=== PATIENT | female | born 1975 | race Caucasian/White ===

== ENCOUNTER → 2020-04-15 16:35 | Outpatient (CLI) | payer OTHER, SELFPAY ==
[2020-04-15 18:01] LABS: Absolute Lymphocyte Count 2.78 X10^3/uL (0.83-4.51); Absolute Neutrophil Count 4.2 X10^3/uL (2.0-7.7); Basophil# 0.08 X10^3/uL; Eosinophils% 1.3 % (0-5); Hematocrit 41.4 % (37-47); Hemoglobin 13.5 g/dL (12.0-15.0); Lymphocyte # 2.78 X10^3/ul (4.0); Lymphocyte % 36.2 % (19-41); Mean Corp Hgb Conc 32.6 g/dL (32-36); Mean Corpuscular Hgb 30.2 pg (27.0-32.0); Mean Corpuscular Volume 92.6 fL (81-99); Mean Platelet Vol. 10.4 fl (6.2-12.0); Monocyte# 0.52 X10^3/uL; Monocyte% 6.8 % (0-10); NRBC Flagged by Analyzer 0 % (0-5); Neutrophil # 4.17 X10^3/uL (2.7-7.7); Neutrophil % 54.4 % (47-70); Platelet Count 304 K/mm3 (150-450); RBC Distribution Width SD 41.1 fl (35.1-43.9); Red Blood Count 4.47 M/mm3 (4.2-5.4); White Blood Count 7.7 K/mm3 (4.4-11.0)
[2020-04-15 18:38] LABS: Vitamin B12 497 pg/mL (211-911); Vitamin D,25 Hydroxy 27.8 ng/mL
[2020-04-15 18:53] LABS: ALB/GLOB Ratio 1.1 RATIO (0.9-2.4); AST(SGOT) 20 U/L (15-37); Alanine Aminotransfer ALT/SGPT 28 U/L (13-56); Albumin, Serum 4.1 g/dL (3.2-5.0); Alkaline Phosphatase 58 U/L (45-117); Anion Gap 8 (5-15); BUN 19 mg/dL (7-18); BUN/Creat Ratio 25.1 RATIO (10-20); Chloride 106 mmol/L (98-107); Creatinine, Serum 0.76 mg/dL (0.55-1.02); EST Glomerular Filtration Rate 88 mL/min (>60); Est Glom Filt Rate - Afr Amer 107 mL/min (>60); Globulin 3.6 g/dL (2.2-4.2); Glucose 86 mg/dL (74-106); Potassium 3.5 mmol/L (3.5-5.1); Protein, Total 7.7 g/dL (6.4-8.2); Sodium Level 140 mmol/L (136-145); Thyroid Stim Hormone (TSH) 4.16 uIU/mL (0.358-3.74)
== END ==
PROVIDERS: PCP Family Medicine; Referring Provider Family Medicine; Visit Provider Family Medicine
DX: E04.1 Nontoxic single thyroid nodule (principal); R53.83 Other fatigue
CPT/HCPCS: 36415; 80053; 82306; 82607; 84443; 85025

== ENCOUNTER → 2020-06-21 15:17 | Outpatient (CLI) | payer OTHER, SELFPAY ==
--- NOTE | 2020-06-21 15:27 | US_ITS ---
STUDY: THYROID ULTRASOUND REASON FOR EXAM: Female, 44 years old. nodules TECHNIQUE: Ultrasound evaluation of the thyroid was performed with real-time and static ramirez-scale imaging. COMPARISON: None. FINDINGS: RIGHT LOBE: The right lobe of the thyroid gland measures 4.5 x 1.8 x 2.2 cm. There is a heterogeneous echotexture. There are no demonstrated solid, cystic or complex lesions. LEFT LOBE: The left lobe of the thyroid gland measures 4.3 x 1.6 x 2.0 cm. There is a heterogeneous echotexture. Nodule 1:1.5 x 0.8 x 1.0 cm solid isoechoic wider than tall smoothly marginated nodule with no echogenic foci (TR 3) and follow-up ultrasound is recommended in one year. ISTHMUS: The isthmus measures 3 mm thick. . The regional lymph nodes are normal. US/Thyroid IMPRESSION: Thyroiditis with a dominant 1.5 cm solid nodule the left lobe. Follow-up ultrasound is recommended in one year. Electronically Signed: Miguel Weldon MD at 8:59 EST Tel , Service support ,
== END ==
PROVIDERS: PCP Family Medicine; Referring Provider Family Medicine; Visit Provider Family Medicine
DX: E04.1 Nontoxic single thyroid nodule (principal)
CPT/HCPCS: 76536

== ENCOUNTER → 2020-06-26 15:38 | Outpatient (CLI) | payer OTHER, SELFPAY ==
[2020-06-26 18:24] LABS: Free T3 2.5 pg/mL (2.18-3.98); T4 Free Direct 1.21 ng/dL (0.76-1.46); T4 Total, Thyroxin 9.8 ug/dL (4.8-13.9)
[2020-06-28 21:03] LABS: Anti-Thyroglobulin AB < 1.0 IU/mL (0.0-0.9); Thyroglobulin, Serum Qt. 43.3 ng/mL (1.5-38.5); Thyroid Peroxidase AB 30 IU/mL (0-34)
== END ==
PROVIDERS: PCP Family Medicine; Referring Provider Family Medicine; Visit Provider Family Medicine
DX: E03.9 Hypothyroidism, unspecified (principal)
CPT/HCPCS: 36415; 84432; 84436; 84439; 84481; 86376; 86800

== ENCOUNTER → 2020-08-14 15:34 | Outpatient (CLI) | payer OTHER, SELFPAY ==
[2020-08-14 18:11] LABS: Thyroid Stim Hormone (TSH) 1.32 uIU/mL (0.358-3.74)
== END ==
PROVIDERS: PCP Family Medicine; Referring Provider Family Medicine; Visit Provider Family Medicine
DX: E03.9 Hypothyroidism, unspecified (principal)
CPT/HCPCS: 36415; 84443

== ENCOUNTER → 2020-11-11 16:05 | Outpatient (CLI) | payer OTHER, SELFPAY ==
[2020-11-11 18:44] LABS: Thyroid Stim Hormone (TSH) 1.24 uIU/mL (0.358-3.74)
== END ==
PROVIDERS: PCP Family Medicine; Visit Provider Family Medicine
DX: E04.1 Nontoxic single thyroid nodule (principal)
CPT/HCPCS: 36415; 84443

== ENCOUNTER 2021-01-08 10:44 | Outpatient (RCR) | payer OTHER, SELFPAY ==
--- NOTE | 2021-01-15 12:26 | HP.SP.AD_ITS ---
History - History Date of Eval: 01/08/21 Medical Diagnosis (from RX): Tongue Thrust Previous speech therapy: No Other Relevant Medical History/Diagnoses/Surgery: Non contributory - Pain Is pain an issue with your current prescribed condition?: No - Personal Right Hearing Abillity: Normal Left Hearing Abillity: Normal Patients Living Arrangements: With Significant Other Objective Oral Motor - Oral Status Dentition: WNL - Labial Impairment: WNL Closure: WNL Pucker: WNL Retraction: WNL Alternating Pucker/Retraction: WNL Involuntary Movement noted: No - Lingual Impairment: WNL Protrusion: WNL Retraction: WNL Lateralization: WNL Involuntary Movement: No - Jaw Impairment: WNL - Oral Motor Comments Comments: Noted open anterior bite. - Respiratory Status Respiratory Status: Room Air Other Impressions - Comments Tongue thrust -: When drinking water, protrusion of the tongue was observed during swallowing, indicating a tongue thrust and a reverse swallow pattern. The muscles of her tongue appeared to push down and forward instead of up and back for an appropriate swallow pattern. Yajaira had a difficult time having a collected bolus to swallow as she exhibited scattered bolus for liquids. Oral Movements -: Yajaira was able to perform all oral motor movement tasks within normal limits. These tasks included sticking out her tongue, elevating and lowering her tongue inside and outside of the mouth, and moving the tongue from side to side. Observations of the oral structures presented within normal limits with the exception of the anterior open bite. 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 Overall it was determined Yajaira exhibits a tongue thrust/reverse swallow pattern evidenced by oral behaviors during swallowing. She received an oral motor exam during the evaluation in which her oral structures and function were evaluated through observation of her mouth at rest, during speech, while drinking, and while producing specific oral motor activities. She demonstrated mixed breathing - nose and mouth, however, she did not present with an open mouth posture at rest typically. No TMJ symptoms reported. She had within normal limits for mandibular movements and was able to complete lingual- mandibular differentiation chinyere quately. No grinding or clenching of teeth reported. Plan - Plan Plan: Yajaira is aware of swallow pattern at this time. She is highly interested in a program to correct her lingual placement and swallow pattern. She will be provided with a home program with two sessions to determine if she is able to complete a home program independently. The plan is for her to complete 1-2 education sessions then follow up monthly with reduction as patient gain skills. Patient has requested a home program over therapy sessions due to scheduling. - Recommendations Treatment Warranted: Yes - Frequency Frequency: 1-2 sessions then monthly Duration: 6 Months Visits in this POC: 7 - Goals that are Established: Determination:: Goals will be added/modified as deemed necessary and appropriate. Therapy will be discontinued when results of re-evaluation indicate therapy is no longer needed or lack of progress has been documented. - Goal #1-5 Goal #1: Yajaira will report a correct swallowing pattern for all foods and liquids and a resting posture with a comfort level of 1 on a scale of 1 being all the time and 10 being never on 3 consecutive sessions. Goal #2: Yajaira will demonstrate a correct swallowing pattern for all foods and liquids independently. Goal #3: Yajaira will participate in oral exercises in order to obtain a correct resting posture as well as correct swallow pattern with the ability to complete all exercises independently. Education - Patient has Indicated that the Following Identified Educational Needs: None The Patient has indicated that they have no educational or learning abilities that may effect their care.: Yes - Patient Instruction Patient Education: Diagnosis, Treatment Plan Person Taught: Patient Response to teaching: Verbalize understanding
--- NOTE | 2021-02-18 11:13 | HP.SP.DC ---
ST Discharge Summary - Discharged: Discharge: Yajaira Drew is discharged from Speech therapy at [facility] as of February 12, 2021 at her request. 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 After discussing braces and oral issues with one executive director of marketing she decided to discontinue treatment. She is seeking another consult from an another executive director of marketing to confirm. This therapist had no disagreement with the patient requesting discharge as materials/home program had already been provided. Thank you for allowing me to participate in the care of this patient.
== END 2021-01-08 19:00 | disposition home or self-care (01) ==
LOC: SP 10:44
PROVIDERS: PCP Family Medicine
DX: K14.8 Other diseases of tongue (principal); K08.89 Other specified disorders of teeth and supporting structures
CPT/HCPCS: 92610

== ENCOUNTER → 2021-03-13 15:55 | Outpatient (CLI) | payer OTHER, SELFPAY ==
[2021-03-13 18:31] LABS: ALB/GLOB Ratio 1.1 RATIO (0.9-2.4); AST(SGOT) 13 U/L (15-37); Alanine Aminotransfer ALT/SGPT 22 U/L (13-56); Albumin, Serum 3.8 g/dL (3.2-5.0); Alkaline Phosphatase 55 U/L (45-117); Anion Gap 8 (5-15); BUN 13 mg/dL (7-18); BUN/Creat Ratio 17.7 RATIO (10-20); Calcium,Total 8.6 mg/dL (8.5-10.1); Chloride 105 mmol/L (98-107); Cholesterol 168 mg/dL (200); Creatinine, Serum 0.74 mg/dL (0.55-1.02); EST Glomerular Filtration Rate 91 mL/min (>60); Est Glom Filt Rate - Afr Amer 110 mL/min (>60); Free T3 2.5 pg/mL (2.18-3.98); Globulin 3.6 g/dL (2.2-4.2); Glucose 89 mg/dL (74-106); High Density Lipoprotein 70 mg/dL; Potassium 3.8 mmol/L (3.5-5.1); Protein, Total 7.4 g/dL (6.4-8.2); Sodium Level 138 mmol/L (136-145); T4 Free Direct 1.14 ng/dL (0.76-1.46); Thyroid Stim Hormone (TSH) 1.72 uIU/mL (0.358-3.74); Triglycerides 68 mg/dL; Very Low Density Lipoprotein 14 mg/dL (5-40)
== END ==
PROVIDERS: Family Medicine; PCP Registered Nurse; Referring Provider Registered Nurse; Visit Provider Registered Nurse
DX: E03.9 Hypothyroidism, unspecified (principal); E66.3 Overweight
CPT/HCPCS: 36415; 80053; 80061; 84439; 84443; 84481

== ENCOUNTER 2021-06-16 14:37 | Outpatient (CLI) | payer OTHER, SELFPAY ==
[2021-06-16 18:39] LABS: T4 Free Direct 0.92 ng/dL (0.76-1.46); Thyroid Stim Hormone (TSH) 2.72 uIU/mL (0.358-3.74)
== END 2021-06-16 23:59 | disposition short-term general hospital (02) ==
LOC: MFPLAB 14:38
PROVIDERS: PCP Registered Nurse; Visit Provider Registered Nurse
DX: E03.9 Hypothyroidism, unspecified (principal)
CPT/HCPCS: 36415; 84439; 84443; 84481

== ENCOUNTER 2021-07-01 16:27 | Outpatient (CLI) | payer OTHER, SELFPAY ==
--- NOTE | 2021-07-01 16:40 | US_ITS ---
STUDY: THYROID ULTRASOUND REASON FOR EXAM: Female, 45 years old. thyroid nodule follow up TECHNIQUE: Ultrasound evaluation of the thyroid was performed with real-time and static ramirez-scale imaging. COMPARISON: 2.5.21 FINDINGS: RIGHT LOBE: The right lobe of the thyroid gland measures 4.5 x 1 .9 cm. There is a heterogeneous echotexture. There are nodules. Largest nodule is in the upper pole measuring 13 x 10 mm. The lesion is solid with regular margins and joanna nodular intra-nodulardoppler flow. LEFT LOBE: The left lobe of the thyroid gland measures 4.7 x 1.5 cm. There is a heterogeneous echotexture. There are nodules. Largest nodule is in the midline measuring 14 x 9 mm. The lesion is solid with regular margins and joanna nodular intra-nodulardoppler flow. ISTHMUS: The isthmus measures 3 mm. Right lymph node measures 8 x 7 mm. US/Thyroid IMPRESSION: There are RIGHT nodules. This nodule is mixed cystic and solid, hypoechoic, [id number], smoothly marginated and contains no echogenic foci. TI-RADS points: 3. TI-RADS category: TR3. This nodule is mildly suspicious but no FNA or follow-up is necessary given the small size of this nodule. There are left nodules. This nodule is solid or almost completely solid, anechoic, [id number], smoothly marginated and contains no echogenic foci. TI-RADS points: 2. TI-RADS category: TR2. This nodule is not suspicious and no FNA or follow-up is necessary. Electronically Signed: Mode Sanches MD at 17:59 EST ,
== END 2021-07-01 23:59 | disposition home or self-care (01) ==
PROVIDERS: PCP Registered Nurse; Referring Provider Registered Nurse; Visit Provider Registered Nurse
DX: E03.9 Hypothyroidism, unspecified (principal)
CPT/HCPCS: 76536

== ENCOUNTER → 2021-12-22 | Outpatient (CLI) | payer OTHER, SELFPAY ==
[2021-12-22 18:03] LABS: Absolute Neutrophil Count 3.9 X10^3/uL (2.0-7.7); Basophil# 0.11 X10^3/uL; Basophil% 1.6 % (0-1); Eosinophil# 0.09 X10^3/uL; Eosinophils% 1.3 % (0-5); Hematocrit 39.6 % (37-47); Hemoglobin 13.5 g/dL (12.0-15.0); Mean Corp Hgb Conc 34.1 g/dL (32-36); Mean Corpuscular Hgb 31.3 pg (27.0-32.0); Mean Corpuscular Volume 91.9 fL (81-99); Mean Platelet Vol. 10.2 fl (6.2-12.0); Monocyte# 0.51 X10^3/uL; Monocyte% 7.2 % (0-10); NRBC Flagged by Analyzer 0 % (0-5); Neutrophil # 3.93 X10^3/uL (2.7-7.7); Neutrophil % 55.6 % (47-70); Platelet Count 293 K/mm3 (150-450); RBC Distribution Width CV 12.3 % (11.6-14.6); RBC Distribution Width SD 41.9 fl (35.1-43.9); Red Blood Count 4.31 M/mm3 (4.2-5.4); White Blood Count 7.1 K/mm3 (4.4-11.0)
[2021-12-22 18:21] LABS: Vitamin D,25 Hydroxy 35.7 ng/mL
[2021-12-22 18:31] LABS: ALB/GLOB Ratio 1.1 RATIO (0.9-2.4); AST(SGOT) 14 U/L (15-37); Alanine Aminotransfer ALT/SGPT 23 U/L (13-56); Albumin, Serum 4.1 g/dL (3.2-5.0); Alkaline Phosphatase 59 U/L (45-117); Anion Gap 7 (5-15); BUN 17 mg/dL (7-18); BUN/Creat Ratio 20.4 RATIO (10-20); Chloride 104 mmol/L (98-107); Cholesterol 193 mg/dL (200); Creatinine, Serum 0.83 mg/dL (0.55-1.02); EST Glomerular Filtration Rate 78 mL/min (>60); Est Glom Filt Rate - Afr Amer 95 mL/min (>60); Globulin 3.7 g/dL (2.2-4.2); Glucose 75 mg/dL (74-106); High Density Lipoprotein 72 mg/dL; Potassium 3.8 mmol/L (3.5-5.1); Protein, Total 7.8 g/dL (6.4-8.2); Sodium Level 136 mmol/L (136-145); Thyroid Stim Hormone (TSH) 2.52 uIU/mL (0.358-3.74); Triglycerides 68 mg/dL; Very Low Density Lipoprotein 14 mg/dL (5-40)
[2021-12-22 18:37] LABS: Hemoglobin A1c 5.3 % (3.8-5.6)
[2021-12-22 19:57] LABS: Free T3 2.4 pg/mL (2.18-3.98); T4 Free Direct 0.89 ng/dL (0.76-1.46)
== END | disposition home or self-care (01) ==
LOC: MFPLAB 14:29
PROVIDERS: PCP Registered Nurse; Visit Provider Family Medicine
DX: Z00.00 Encounter for general adult medical examination without abnormal findings (principal); E03.9 Hypothyroidism, unspecified
CPT/HCPCS: 36415; 80053; 80061; 82306; 83036; 84439; 84443; 84481; 85025

== ENCOUNTER → 2024-01-18 | Outpatient (CLI) | payer OTHER, SELFPAY ==
[2024-01-18 15:55] LABS: ALB/GLOB Ratio 1.1 RATIO (0.9-2.4); AST(SGOT) 11 U/L (15-37); Alanine Aminotransfer ALT/SGPT 16 U/L (13-56); Albumin, Serum 3.6 g/dL (3.2-5.0); Alkaline Phosphatase 56 U/L (45-117); Anion Gap 5 (5-15); BUN 18 mg/dL (7-18); Calcium,Total 8.9 mg/dL (8.5-10.1); Chloride 108 mmol/L (98-107); Creatinine, Serum 0.78 mg/dL (0.55-1.02); EST Glomerular Filtration Rate 83 mL/min (>60); Est Glom Filt Rate - Afr Amer 101 mL/min (>60); Free T3 2.9 pg/mL (2.18-3.98); Globulin 3.3 g/dL (2.2-4.2); Glucose 93 mg/dL (74-106); Potassium 3.2 mmol/L (3.5-5.1); Protein, Total 6.9 g/dL (6.4-8.2); Sodium Level 141 mmol/L (136-145)
[2024-01-18 15:59] LABS: Absolute Lymphocyte Count 3.66 X10^3/uL (0.83-4.51); Basophil# 0.05 X10^3/uL; Basophil% 0.6 % (0-1); Eosinophil# 0.12 X10^3/uL; Eosinophils% 1.4 % (0-5); Hematocrit 37.1 % (37-47); Hemoglobin 12.4 g/dL (12.0-15.0); Lymphocyte # 3.66 X10^3/ul (0.83-4.51); Mean Corp Hgb Conc 33.4 g/dL (32-36); Mean Corpuscular Hgb 30.6 pg (27.0-32.0); Mean Corpuscular Volume 91.6 fL (81-99); Mean Platelet Vol. 10.9 fl (6.2-12.0); Monocyte# 0.69 X10^3/uL; Monocyte% 8.1 % (0-10); NRBC Flagged by Analyzer 0 % (0-5); Neutrophil # 3.97 X10^3/uL (2.7-7.7); Neutrophil % 46.7 % (47-70); Platelet Count 266 K/mm3 (150-450); RBC Distribution Width CV 12.5 % (11.6-14.6); RBC Distribution Width SD 41.7 fl (35.1-43.9); Red Blood Count 4.05 M/mm3 (4.2-5.4); White Blood Count 8.5 K/mm3 (4.4-11.0)
[2024-01-23 02:06] LABS: ANTINUCLEAR ANTIBODIES DIRECT Negative (Negative); Beef <0.10 kU/L (Class 0); Chocolate <0.10 kU/L (Class 0); Codfish <0.10 kU/L (Class 0); Corn <0.10 kU/L (Class 0); Egg, Whole <0.10 kU/L (Class 0); Milk (Cow) <0.10 kU/L (Class 0); Mussels <0.10 kU/L (Class 0); Peanut <0.10 kU/L (Class 0); Pork <0.10 kU/L (Class 0); Salmon <0.10 kU/L (Class 0); Shrimp <0.10 kU/L (Class 0); Soybean <0.10 kU/L (Class 0); Tuna <0.10 kU/L (Class 0); Wheat <0.10 kU/L (Class 0)
== END | disposition home or self-care (01) ==
LOC: MFPLAB 11:57
PROVIDERS: PCP Registered Nurse; Visit Provider Family Medicine
DX: L30.9 Dermatitis, unspecified (principal); E06.3 Autoimmune thyroiditis
CPT/HCPCS: 80053; 84439; 84443; 84481; 85025; 86003; 86005; 86038

== ENCOUNTER → 2024-01-27 | Outpatient (CLI) | payer OTHER, SELFPAY ==
[2024-01-27 15:43] LABS: Potassium 3.5 mmol/L (3.5-5.1)
== END | disposition home or self-care (01) ==
PROVIDERS: PCP Family Medicine; Visit Provider Family Medicine
DX: E87.6 Hypokalemia (principal)
CPT/HCPCS: 36415; 84132

== ENCOUNTER → 2024-04-18 | Outpatient (CLI) | payer OTHER, SELFPAY ==
--- NOTE | 2024-04-18 17:16 | RAD_ITS ---
INDICATION: Mid back pain EXAMINATION/TECHNIQUE: X-RAY - XR Spine Thoracic 2 Views COMPARISON: No relevant prior comparison study available FINDINGS: VERTEBRAE: Preserved vertebral body height. No fracture. No spondylolisthesis. Preservation of the normal thoracic kyphosis. No significant facet arthropathy. DISCS: Disc spaces are maintained. INCLUDED CHEST/ABDOMEN: No acute abnormalities. RAD/Thoracic Spine 2 Views IMPRESSION: No evidence of thoracic spinal fracture or spondylolisthesis. Electronically Signed: Omar Riddle MD at 20:04 EST ,
== END | disposition home or self-care (01) ==
LOC: MTRAD 17:16
PROVIDERS: PCP Family Medicine; Referring Provider Family Medicine; Visit Provider Family Medicine
DX: M54.9 Dorsalgia, unspecified (principal)
CPT/HCPCS: 72070